=== PATIENT | female | born 1950 | race Caucasian/White ===

== ENCOUNTER → 2016-11-29 | Outpatient (CLI) | payer MEDICARE, OTHER ==
[~2016-11-29] MED LIST: ACCUPRIL TAB 5MG5 MG PO; ANASTROZOLE1 MG PO; CITALOPRAM HBR40 MG PO; COREG 3.125M3.125 MG PO; CRESTOR40 MG PO; FENOFIBRATE134 MG PO; FLUTICASONE PRO16 GM; HUMALOG; HUMALOG SQ; HUMALOG100 UNIT/1 SQ; LANTUS100 UNIT/1 SQ; LIORESAL TAB 1010 MG PO; LOW DOSE ASPIRI81 MG PO; MODAFINIL200 MG PO; NAPROSYN500 MG PO; NAPROXEN500 MG PO; NEURONTIN 300300 MG PO; PANTOPRAZOLE SO40 MG PO; PERCOCET 5-3251 EACH PO; PROLIA INJ60 MG/1 ML SC; PROTONIX40 MG PO; TRILIPIX135 MG PO; TRULICITY1.5 MG/0.5 SQ; TYLENOL W/CODEIN1 E1 PO
[2016-11-29 11:44] LABS: RED BLOOD COUNT 3.87 M/UL (4.00-5.10); WHITE BLOOD COUNT 4.7 K/UL (4.5-11.0)
[2016-11-29 12:02] LABS: BUN/CREATININE RATIO 31 (0-10)
== END ==
LOC: OPSV2 11:00
PROVIDERS: Orthopaedic Surgery
DX: Z01.812 Encounter for preprocedural laboratory examination (principal); Z01.810 Encounter for preprocedural cardiovascular examination; G56.01 Carpal tunnel syndrome, right upper limb; Z88.2 Allergy status to sulfonamides; I10 Essential (primary) hypertension; I25.10 Atherosclerotic heart disease of native coronary artery without angina pectoris
CPT/HCPCS: 36415; 80048; 85027; 93005

== ENCOUNTER → 2016-12-01 | Day surgery (SDC) | payer MEDICARE, OTHER ==
[~2016-12-01] VITALS: Ht 167.6 cm; Wt 97.1 kg
== END | disposition home or self-care (01) ==
LOC: OR 08:31
PROVIDERS: Orthopaedic Surgery
PROC: 01N50ZZ Release Median Nerve, Open Approach (ICD-10-PCS; principal; 2016-12-01 13:00)
DX: G56.01 Carpal tunnel syndrome, right upper limb (principal); I11.0 Hypertensive heart disease with heart failure; I50.9 Heart failure, unspecified; E11.9 Type 2 diabetes mellitus without complications; I25.10 Atherosclerotic heart disease of native coronary artery without angina pectoris; G47.30 Sleep apnea, unspecified; F32.9 Major depressive disorder, single episode, unspecified; Z99.89 Dependence on other enabling machines and devices; Z85.3 Personal history of malignant neoplasm of breast; Z87.440 Personal history of urinary (tract) infections; Z88.2 Allergy status to sulfonamides; Z79.4 Long term (current) use of insulin; Z79.82 Long term (current) use of aspirin; Z79.899 Other long term (current) drug therapy; Z90.49 Acquired absence of other specified parts of digestive tract; Z98.890 Other specified postprocedural states
CPT/HCPCS: J0690; J7120